=== PATIENT | female | born 1965 | race Two or more races ===

== ENCOUNTER 2016-09-22 19:38 | Emergency (ER) | payer MEDICAID ==
[~2016-09-22] VITALS: Ht 160 cm; Wt 71.0 kg
[2016-09-22] MEDS ORDERED: FAMOTIDINE 20MG/2ML VIAL IV STA (20:25)
[2016-09-22] MEDS ORDERED: MORPHINE SULFATE 4 MG/ML CPJ (NOT FOR IM USE) IV STA (20:25)
[2016-09-22] MEDS ORDERED: ONDANSETRON HCL 4MG/2ML VIAL IV STA (20:25)
[2016-09-22 20:43] LABS: CLARITY URINE CLEAR (CLEAR); COLOR URINE YELLOW (YELLOW); GLUCOSE URINE NEGATIVE (NEGATIVE); KETONES URINE NEGATIVE (NEGATIVE); LEUKOCYTE ESTERASE URINE 3+ (NEGATIVE); NITRITE URINE NEGATIVE (NEGATIVE); OCCULT BLOOD URINE 1+ (NEGATIVE); PROTEIN URINE NEGATIVE (NEGATIVE); SPECIFIC GRAVITY URINE 1.014 (1.005-1.030); UROBILINOGEN URINE 0.2 E.U./dL (0.2-1.0)
[2016-09-22 20:51] LABS: BASOPHILS % 0.7 % (0.0-2.0); EOSINOPHILS % 2.4 % (0.0-5.0); HEMATOCRIT. 38.5 % (36.0-48.0); HEMOGLOBIN. 13.3 g/dL (12.0-16.0); LYMPHOCYTES % 38.1 % (20.0-50.0); MEAN CORPUSCULAR HEMOGLOBIN 30.6 pg (28.0-32.0); MEAN CORPUSCULAR VOLUME 88.9 fL (81.0-99.0); MEAN PLATELET VOLUME 7.4 fl (7.4-10.4); NEUTROPHILS % 51.8 % (40.0-76.0); PLATELET 312 x1000/uL (130-400); RED BLOOD CELL COUNT 4.33 mill/uL (4.2-5.4); RED CELL DISTRIBUTION WIDTH 12.4 % (11.6-14.6)
[2016-09-22 21:04] LABS: CHLORIDE 104 mEq/L (98-107)
[2016-09-22 21:10] LABS: CARBON DIOXIDE 26 mEq/L (21-32)
[2016-09-22 23:45] VITALS: BP 106/68
== END 2016-09-22 23:45 | disposition home or self-care (01) ==
LOC: ER 20:39
DX: K29.00 Acute gastritis without bleeding (principal); R10.9 Unspecified abdominal pain; K27.9 Peptic ulcer, site unspecified, unspecified as acute or chronic, without hemorrhage or perforation; E78.00 Pure hypercholesterolemia, unspecified
CPT/HCPCS: 36415; 76705; 80053; 81001; 83690; 85025; 96374; 96375; 99285; J2270; J2405; J3490; Z7610

== ENCOUNTER 2016-09-26 07:17 | Emergency (ER) | payer MEDICAID ==
[~2016-09-26] VITALS: Ht 160 cm; Wt 75.0 kg
[2016-09-26] MEDS ORDERED: VISCOUS LIDOCAINE 2% 15 ML UDC PO STA (08:17)
[2016-09-26] MEDS ORDERED: MAGNESIUM/ALUMINUM HYDROXIDE/SIMETHICONE 30ML UDC PO STA (08:17)
[2016-09-26] MEDS ORDERED: DICYCLOMINE 10 MG/5 ML ORAL SYR PO STA (08:17)
[2016-09-26] MEDS ORDERED: HYDROCODONE/ACETAMINOPHEN 5/325MG TABLET PO ONE (08:30)
[2016-09-26 09:49] VITALS: BP 114/69
== END 2016-09-26 09:54 | disposition home or self-care (01) ==
LOC: ER 08:08
DX: R10.13 Epigastric pain (principal); E78.00 Pure hypercholesterolemia, unspecified
CPT/HCPCS: 99284; Z7610